=== PATIENT | male | born 2005 ===

== ENCOUNTER 2024-04-14 22:40 | Inpatient (IN) | payer MEDICAID, OTHER ==
[~2024-04-14] VITALS: Ht 188 cm; Wt 104.5 kg
[2024-04-14] MEDS ORDERED: ARIP2TAB27 PO (23:03)
[2024-04-14] MEDS ORDERED: ESCI-8 PO (23:03)
[2024-04-14] MEDS ORDERED: GABA-1216 PO (23:03)
[2024-04-15 00:26] LABS: ANION GAP 7 mmol/L (8-16); CALCIUM, TOTAL 9.1 mg/dL (8.8-10.5); CARBON DIOXIDE 30 mmol/L (22-29); CHLORIDE 104 mmol/L (98-107); CREATININE 0.94 mg/dL (0.60-1.30); GLOMERULAR FILTR. RATE CALC > 60 mL/min (>60); GLUCOSE,RANDOM 91 mg/dL (70-110); POTASSIUM 3.9 mmol/L (3.5-5.1); SODIUM SERUM 141 mmol/L (136-145); UREA NITROGEN, BLOOD 12 mg/dL (7-18)
[2024-04-15 00:28] LABS: BASOPHILS % (AUTO) 0.3 % (0.0-2.0); EOSINOPHILS % (AUTO) 0.8 % (1.0-6.0); HEMATOCRIT 45.7 % (41-53); LYMPHOCYTES # (AUTO) 1.9 K/uL (1.0-4.8); LYMPHOCYTES % (AUTO) 21.2 % (22.0-44.0); MEAN CORPUSCULAR HEMOGLOBIN 29.7 pg (26.0-34.0); MEAN CORPUSCULAR HGB CONC 32.9 G/dL (31.0-37.0); MEAN CORPUSCULAR VOLUME 90 fL (80-100); MONOCYTES # (AUTO) 0.6 K/uL (0.1-1.0); NEUTROPHILS # (AUTO) 6.4 K/uL (1.8-7.7); NEUTROPHILS % (AUTO) 70.7 % (40.0-70.0); PLATELET COUNT (AUTO) 296 K/uL (150-450); RED BLOOD CELL COUNT(AUTO) 5.05 MIL/uL (4.50-5.90); RED CELL DISTRIBUTION WIDTH 13.4 % (11.5-14.5)
[2024-04-15 00:31] LABS: ALCOHOL, BLOOD (SERUM) < 3 mg/dL (0-10)
[2024-04-15 02:28] LABS: ALCOHOL, URINE DRUG SCREEN NEGATIVE (NEGATIVE); AMPHET/METH SCREEN,URINE NEGATIVE (NEGATIVE); BARBITURATE SCREEN, URINE NEGATIVE (NEGATIVE); BENZODIAZEPINES SCREEN,URINE NEGATIVE (NEGATIVE); CANNABINOID SCREEN,URINE POSITIVE (NEGATIVE); COCAINE SCREEN,URINE NEGATIVE (NEGATIVE); METHADONE SCREEN, URINE NEGATIVE (NEGATIVE); OPIATE SCREEN,URINE NEGATIVE (NEGATIVE); PHENCYCLIDINE SCREEN,URINE NEGATIVE (NEGATIVE)
[2024-04-15 02:39] LABS: COVID AG,FIA SOURCE NASAL SWAB
[2024-04-15 03:25] LABS: SARS-COV2 (COVID) ANTIGEN,FIA Negative (Negative)
[2024-04-16] MEDS: LORazepam 2 MG TABLET PO PRN (00:21)
[2024-04-16] MEDS: QUEtiapine FUMARATE 100 MG TABLET PO PRN (01:09)
[2024-04-16] MEDS: ZOLPIDEM TARTRATE 10 MG TABLET PO PRN (01:50)
[2024-04-16 18:55] VITALS: BP 128/59; PULSE 108; RESP 16; TEMP 98.1; O2SAT 96
[2024-04-17 08:57] VITALS: BP 120/67; PULSE 75; RESP 18; TEMP 96.6; O2SAT 96
[2024-04-17] MEDS ORDERED: MAG HYDROX/ALUMINUM HYD/SIMETH ES 30 ML SUSPENSION UDCUP PO PRN (09:00)
[2024-04-17] MEDS ORDERED: ACETAMINOPHEN 325 MG TABLET PO PRN (09:00)
[2024-04-17] MEDS ORDERED: CloNIDine HCL 0.1 MG TABLET PO PRN (09:00)
[2024-04-17] MEDS ORDERED: GuaiFENesin/D-METHORPHAN [SUGAR-FREE] 200-20MG/10 ML SYRUP UDCUP PO PRN (09:00)
[2024-04-17] MEDS ORDERED: PETROLATUM,WHITE 28 GM JELLY TP PRN (09:00)
[2024-04-17] MEDS ORDERED: MAGNESIUM HYDROXIDE SUSPENSION 30 ML UDCUP PO PRN (09:00)
[2024-04-17] MEDS ORDERED: DOCUSATE SODIUM 100 MG CAPSULE PO PRN (09:00)
[2024-04-17] MEDS ORDERED: ALBUTEROL SULFATE HFA 90 MCG/PUFF 8 GM INHALER IH PRN (09:00)
[2024-04-17] MEDS ORDERED: ONDANSETRON HCL 4 MG TABLET PO PRN (09:00)
[2024-04-17] MEDS ORDERED: LOPERAMIDE HCL 2 MG CAPSULE PO PRN (09:00)
[2024-04-17] MEDS ORDERED: NICOTINE 14 MG/24 HOUR PATCH TD PRN (09:00)
[2024-04-17] MEDS ORDERED: ARIP15TA27 PO (11:55)
[2024-04-17] MEDS: ARIPiprazole 15 MG TABLET PO SCH (12:58)
[2024-04-17] MEDS: ESCITALOPRAM OXALATE 10 MG TABLET PO SCH (12:58)
[2024-04-17 20:20] VITALS: BP 113/55; PULSE 83; RESP 18; TEMP 97.3; O2SAT 95
[2024-04-18] MEDS: IBUPROFEN 400 MG TABLET PO PRN (06:15)
[2024-04-18 06:16] VITALS: BP 117/62; PULSE 88; RESP 18; TEMP 97.6; O2SAT 95
[2024-04-18 08:42] VITALS: BP 121/66; PULSE 87; RESP 19; TEMP 98; O2SAT 98
[2024-04-18 09:06] LABS: HEMOGLOBIN A1C 5.2 % (3.8-5.6)
[2024-04-18 09:26] LABS: CHOL/HDL RATIO 4.5 (4.2-7.3); THYROID STIMULATING HORMONE 3.02 uIU/mL (0.36-3.74)
[2024-04-18 20:00] VITALS: BP 110/65; PULSE 73; RESP 16; TEMP 97.5; O2SAT 95
[2024-04-19 08:17] VITALS: BP 121/61; PULSE 70; RESP 17; TEMP 97.4; O2SAT 96
[2024-04-19] MEDS ORDERED: ARIP15TA27 PO (11:25)
[2024-04-19] MEDS ORDERED: ESCI-8 PO (11:25)
[2024-04-20 07:50] LABS: APPEARANCE,URINE TURBID (CLEAR); BILIRUBIN,URINE NEGATIVE (NEGATIVE); COLOR,URINE ORANGE (YELLOW); GLUCOSE, URINE (UA) NEGATIVE (NEGATIVE); KETONES,URINE =>150 mg/dL (NEGATIVE); LEUKOCYTE ESTERASE ,URINE NEGATIVE (NEGATIVE); NITRATE,URINE NEGATIVE (NEGATIVE); OCCULT BLOOD,URINE NEGATIVE (NEGATIVE); PROTEIN,URINE 30-70 mg/dL (NEGATIVE); SPECIFIC GRAVITIY, URINE 1.034 (1.003-1.030)
== END 2024-04-19 14:30 | disposition home or self-care (01) | DRG 750 ==
LOC: EMS 22:40 → B2S 04-16 17:53
PROVIDERS: ADMIT Psychiatry & Neurology Psychiatry; ATTEND Psychiatry & Neurology Psychiatry
PROC: GZHZZZZ Group Psychotherapy (ICD-10-PCS; principal; 2024-04-17)
PROC: GZ51ZZZ Individual Psychotherapy, Behavioral (ICD-10-PCS; 2024-04-17)
DX: F25.1 Schizoaffective disorder, depressive type (principal); R45.851 Suicidal ideations; F43.10 Post-traumatic stress disorder, unspecified; Z20.822 Contact with and (suspected) exposure to COVID-19; K21.9 Gastro-esophageal reflux disease without esophagitis; F12.10 Cannabis abuse, uncomplicated; F41.9 Anxiety disorder, unspecified; Z79.899 Other long term (current) drug therapy; Z91.51 Personal history of suicidal behavior
CPT/HCPCS: 80048; 80061; 80307; 83036; 84443; 85025; 99285; G0480